=== PATIENT | male | born 1995 | race Hispanic/Latino ===

== ENCOUNTER 2020-09-03 03:52 | Emergency (ER) | payer OTHER ==
[~2020-09-03] VITALS: Ht 167.6 cm; Wt 97.5 kg
[2020-09-03] MEDS ORDERED: MECLIZINE HCL 12.5 MG TAB PO STA (04:07)
[2020-09-03] MEDS ORDERED: MECLIZINE HCL12.5 MG PO (04:15)
== END 2020-09-03 05:06 | disposition home or self-care (01) ==
LOC: ER 04:28
DX: R42 Dizziness and giddiness (principal)
CPT/HCPCS: 93005; 99283; J8597

== ENCOUNTER 2020-09-05 18:50 | Emergency (ER) | payer OTHER ==
[~2020-09-05] VITALS: Ht 167.6 cm; Wt 97.5 kg
[~2020-09-05 18:50] MED LIST: MECLIZINE HCL12.5 MG PO
[2020-09-05 21:38] VITALS: BP 132/76
== END 2020-09-05 21:39 | disposition home or self-care (01) ==
LOC: ER 19:44
DX: R42 Dizziness and giddiness (principal); R50.9 Fever, unspecified; R51.9 Headache, unspecified
CPT/HCPCS: 70450; 99283